=== PATIENT | female | born 1970 | race African-American/Black ===

== ENCOUNTER 2018-08-28 18:08 | Emergency (ER) | payer OTHER ==
[~2018-08-28] VITALS: Ht 162.6 cm; Wt 63.5 kg
--- NOTE | 2018-08-28 18:29 | NUR ---
[facility] KEYORTHOTIST PROSTHETIST AT BEDSIDE FOR PATIENT EVAL.
[2018-08-28] MEDS ORDERED: SODIUM CHLORIDE 0.9% 1000ML 1,000 ML IV STA (18:33)
--- NOTE | 2018-08-28 18:45 | NUR ---
VERBAL REPORT GIVEN TO ANASTACIA CHENEY.
[2018-08-28 19:10] LABS: BASOPHILS % 0.6 % (0.0-1.0); EOSINOPHILS # (AUTO) 0.1 (0.0-0.4); EOSINOPHILS % 1.6 % (0.0-6.0); HEMATOCRIT 37.5 % (34.2-44.1); HEMOGLOBIN 12.7 g/dL (12.0-16.0); LYMPHOCYTES # (AUTO) 1.6 (1.0-3.2); LYMPHOCYTES % 32.9 % (18.0-39.1); MEAN CORPUSCULAR HEMOGLOBIN 31.6 pg (28-32); MEAN CORPUSCULAR HGB CONC 33.9 g/dL (31-35); MEAN CORPUSCULAR VOLUME 93.3 fL (81-99); MONOCYTES # (AUTO) 0.5 (0.2-0.8); NEUTROPHILS # (AUTO) 2.6 (2.1-6.9); NEUTROPHILS % 53.7 % (38.7-80.0); PLATELET COUNT 228 x10e3/uL (140-360); RED BLOOD COUNT 4.02 x10e6/uL (3.6-5.1); RED CELL DISTRIBUTION WIDTH 13.7 % (11.7-14.4)
[2018-08-28 19:23] LABS: PROTHROMBIN TIME 14.1 seconds (11.9-14.5)
[2018-08-28 19:24] LABS: PARTIAL THROMBOPLASTIN TIME 24.2 seconds (23.8-35.5)
[2018-08-28 19:31] LABS: CLARITY,URINE CLEAR (CLEAR); COLOR,URINE YELLOW (YELLOW); LEUKOCYTE ESTERASE ,URINE NEGATIVE (NEGATIVE)
[2018-08-28 19:32] LABS: BILIRUBIN,URINE NEGATIVE (NEGATIVE); KETONES,URINE NEGATIVE (NEGATIVE); NITRITE,URINE NEGATIVE (NEGATIVE); PROTEIN,URINE DIPSTICK NEGATIVE (NEGATIVE); URINE UROBILINOGEN 0.2 mg/dL (0.2 - 1)
[2018-08-28 19:32] LABS: ALANINE AMINOTRANSFERASE 21 IU/L (0-55); ALBUMIN 3.5 g/dL (3.5-5.0); ALBUMIN/GLOBULIN RATIO 0.8 (0.8-2.0); ALKALINE PHOSPHATASE 112 IU/L (40-150); AMYLASE 116 U/L (25-125); ANION GAP 15.1 mmol/L (8-16); BLOOD UREA NITROGEN 9 mg/dL (7-26); BUN/CREATININE RATIO 11 (6-25); CARBON DIOXIDE 23 mmol/L (22-29); CHLORIDE 102 mmol/L (98-107); CREATINE KINASE 111 IU/L (29-168); CREATININE, SERUM 0.79 mg/dL (0.57-1.11); EST GLOMERULAR FILTRATION RATE > 60 ML/MIN (60-); GLUCOSE 90 mg/dL (74-118); LIPASE 29 U/L (8-78); POTASSIUM 4.1 mmol/L (3.5-5.1); SODIUM 136 mmol/L (136-145)
--- NOTE | 2018-08-28 19:40 | Diagnostic Imaging Report ---
CHEST SINGLE (PORTABLE), 08/28/2018 6:33 PM Technique: CHEST SINGLE (PORTABLE) Comparison: None available. Clinical history: Chest pain Findings: See Impression Impression: Low lung volumes and portable technique result in accentuation of the cardiomediastinal silhouette. Mild bibasilar opacity may reflect atelectasis; aspiration or infection not excluded in the proper clinical setting. Recommend follow-up upright PA and lateral with improved inspiratory effort. No effusion or pneumothorax. Signed by: Dr Tyesha Gilbert MD on 08/28/2018 7:37 PM
[2018-08-28 19:42] LABS: EPITHELIAL CELLS,URINE FEW /LPF; RBC,URINE 0-5 /HPF (0-5)
[2018-08-28 19:51] LABS: STREPTOCOCCUS GRP A ANTIGEN NEGATIVE (NEGATIVE)
[2018-08-28 20:04] LABS: INFLUENZAE A&B ANTIGEN (RAPID) NEGATIVE (NEGATIVE)
[2018-08-28 20:35] VITALS: BP 109/78
--- NOTE | 2018-08-28 21:00 | NUR ---
PT STATES THAT FAMILY UNABLE TO FUNERAL CAR CHAUFFEUR. PT REQUEST CAB VOUCHER. WIRE STOCKKEEPER NOTIFIED.
--- NOTE | 2018-08-28 21:19 | Diagnostic Imaging Report ---
CHEST 2 VIEWS, Technique: CHEST 2 VIEWS Comparison: 08/28/2018 Clinical history: Congestion, cough DISCUSSION: See impression IMPRESSION: Persistent low lung volumes with bibasilar opacities which may reflect atelectasis or aspiration/infection in the acute setting. Recommend short-term or 6-8 week follow-up. No effusion or pneumothorax. Signed by: Dr Tyesha Gilbert MD on 08/28/2018 9:16 PM
--- NOTE | 2018-08-28 22:30 | NUR ---
CAB HAS NOT ARRIVED FOR PICKUP. CALLED CAB SERVICE. DISPATCHER STATES THAT 30-1HR FOR CAB TO ARRIVE.
--- NOTE | 2018-08-28 23:30 | NUR ---
CAB ARRIVED AT THIS TIME. PT ASSISTED TO CAB. EARNEST Brown PATIENT. VOUCHER TO MEDICAL DEVICE ENGINEER. VOUCHER STUB AND FACESHEET GIVEN TO ASSISTANT MEN'S SOCCER COACH.
== END 2018-08-28 23:30 | disposition home or self-care (01) ==
LOC: ER 18:08
DX: R50.9 Fever, unspecified (principal); R05 Cough; M79.10 Myalgia, unspecified site; J02.9 Acute pharyngitis, unspecified
CPT/HCPCS: 36415; 71045; 71046; 80053; 81001; 82150; 82550; 82553; 83518; 83605; 83690; 84484; 85025; 85610; 85730; 87070; 87086; 87400; 93005; 99284; J7030

== ENCOUNTER → 2020-04-27 | Outpatient (CLI) | payer OTHER ==
--- NOTE | 2020-04-27 11:50 | Diagnostic Imaging Report ---
Radiographs of the right hip and pelvis - HISTORY: Pain COMPARISON: None available. FINDINGS: Bones: No acute displaced fracture. Osseous alignment is within normal limits. Joints: Scattered degenerative change. No osseous erosion. Soft tissues: The soft tissues appear unremarkable. IMPRESSION: Scattered degenerative change. No osseous erosion. Signed by: Dr. Regino Faustin M.D. on 04/27/2020 11:46 AM
== END ==
LOC: MAMMO 10:30
PROVIDERS: ATTEND Internal Medicine
DX: Z12.31 Encounter for screening mammogram for malignant neoplasm of breast (principal); M16.11 Unilateral primary osteoarthritis, right hip
CPT/HCPCS: 77067

== ENCOUNTER → 2021-06-26 | Outpatient (CLI) | payer OTHER | LOC: RAD 13:40 | PROVIDERS: ATTEND Internal Medicine | DX: M19.011 Primary osteoarthritis, right shoulder (principal) ==

== ENCOUNTER → 2021-07-23 | Day surgery (SDC) | payer MEDICARE, OTHER ==
[~2021-07-23] MED LIST: CLOPIDOGREL75 MG PO; FENTANYL CITRATE/PF 100MCG/2 ML INJ ONE; MIDAZOLAM HCL 2 MG/2 ML VIAL ONE; OR PHACO EYE KIT ONE; PREOP PHACO EYE KIT ONE; SUSTIVA600 MG PO
[2021-07-23 12:20] VITALS: BP 98/54
== END | disposition home or self-care (01) ==
LOC: OR 08:50
PROVIDERS: ATTEND Ophthalmology
DX: H25.11 Age-related nuclear cataract, right eye (principal); I50.9 Heart failure, unspecified; Z21 Asymptomatic human immunodeficiency virus [HIV] infection status; E78.5 Hyperlipidemia, unspecified; Z20.822 Contact with and (suspected) exposure to COVID-19; Z86.73 Personal history of transient ischemic attack (TIA), and cerebral infarction without residual deficits; Z79.02 Long term (current) use of antithrombotics/antiplatelets; Z79.899 Other long term (current) drug therapy
CPT/HCPCS: J2250; J3010; U0002; V2632

== ENCOUNTER → 2021-08-06 | Day surgery (SDC) | payer MEDICARE, OTHER ==
[~2021-08-06] MED LIST changes: -FENTANYL CITRATE/PF 100MCG/2 ML INJ ONE; -MIDAZOLAM HCL 2 MG/2 ML VIAL ONE
[2021-08-06 13:00] VITALS: BP 103/68
== END | disposition home or self-care (01) ==
LOC: OR 10:43
PROVIDERS: ATTEND Ophthalmology
DX: H25.12 Age-related nuclear cataract, left eye (principal); F41.9 Anxiety disorder, unspecified; Z21 Asymptomatic human immunodeficiency virus [HIV] infection status; Z79.02 Long term (current) use of antithrombotics/antiplatelets; Z01.812 Encounter for preprocedural laboratory examination; Z20.822 Contact with and (suspected) exposure to COVID-19; Z87.891 Personal history of nicotine dependence; Z86.73 Personal history of transient ischemic attack (TIA), and cerebral infarction without residual deficits
CPT/HCPCS: U0002; V2632